=== PATIENT | female | born 1955 | race Two or more races ===

== ENCOUNTER → 2021-05-07 | Day surgery (SDC) | payer BC ==
[~2021-05-07] VITALS: Ht 162.6 cm; Wt 70.3 kg
[~2021-05-07] MED LIST: ACCU-CHEK COMFORT CURVE STRIP VI ONE; ATO40T PO; CALC0.5C PO; CALC667C5 GT; DexAMETHasone SOD PHOS 10MG/1ML VIAL INJ ONE; HYDROmorphone HCL 2 MG/ML VL IV PRN; HYDROmorphone HCL 2 MG/ML VL ONE; LISI20TA28 PO; METF-372 PO; METOCLOPRAMIDE HCL 5MG/ml INJ 2ml VIAL IV PRN; METOCLOPRAMIDE HCL 5MG/ml INJ 2ml VIAL ONE; MIDAZOLAM HCL 2MG/2ML 2ml VIAL (1mg/ml) ONE; OMEP20TA PO; ONDANSETRON HCL 4 MG/2 ML VIAL IV PRN; ONDANSETRON HCL 4 MG/2 ML VIAL ONE; PROPOFOL 10 MG/ML 20 ML IV ONE; ceFAZolin 1GM/50ML 100 ML IV ONE; ePHEDrine SULFATE 50 MG/ML AMP IV PRN; fentaNYL CITRATE 100 MCG/2 ML VL ONE
[2021-05-07 12:15] VITALS: BP 136/70
== END | disposition home or self-care (01) ==
LOC: SUR 07:59
PROVIDERS: ATTEND Orthopaedic Surgery Sports Medicine
DX: S82.61XA Displaced fracture of lateral malleolus of right fibula, initial encounter for closed fracture (principal); I10 Essential (primary) hypertension; E11.9 Type 2 diabetes mellitus without complications; E78.5 Hyperlipidemia, unspecified; K21.9 Gastro-esophageal reflux disease without esophagitis; Z90.11 Acquired absence of right breast and nipple; Z90.710 Acquired absence of both cervix and uterus; Z88.5 Allergy status to narcotic agent; Z20.822 Contact with and (suspected) exposure to COVID-19; X58.XXXA Exposure to other specified factors, initial encounter; Y92.89 Other specified places as the place of occurrence of the external cause; Y93.89 Activity, other specified; Y99.8 Other external cause status
CPT/HCPCS: 27792; 73600; 82962; C1713; J0690; J1100; J1170; J2250; J2405; J2704; J2765; J3010; U0003; 76000